=== PATIENT | male | born 1970 | race Caucasian/White ===

== ENCOUNTER 2020-10-29 13:48 | Outpatient (REF) | payer OTHER, SELFPAY ==
[2020-10-30 14:05] LABS: H Pylori Breath Test DETECTED (NOT DETECTED)
== END 2020-10-29 13:49 | disposition home or self-care (01) ==
LOC: HO.LNP 13:48
PROVIDERS: PCP Internal Medicine; Visit Provider Nurse Practitioner Family
DX: K21.9 Gastro-esophageal reflux disease without esophagitis (principal)
CPT/HCPCS: 83013

== ENCOUNTER → 2020-12-10 13:16 | Outpatient (BNVA) | payer OTHER, SELFPAY | PROVIDERS: PCP Internal Medicine; Referring Provider Internal Medicine; Visit Provider Nurse Practitioner Family ==

== ENCOUNTER → 2021-01-25 12:49 | Outpatient (BNVA) | payer OTHER, SELFPAY | PROVIDERS: PCP Internal Medicine; Referring Provider Internal Medicine; Visit Provider Internal Medicine | DX: Z01.810 Encounter for preprocedural cardiovascular examination (principal); R07.2 Precordial pain; E11.8 Type 2 diabetes mellitus with unspecified complications; E78.5 Hyperlipidemia, unspecified | CPT/HCPCS: 93005 ==

== ENCOUNTER 2021-02-23 09:15 | Day surgery (SDC) | payer OTHER, SELFPAY ==
[2021-01-20 13:32] VITALS: BMI 28.8
--- NOTE | 2021-02-22 10:53 | P.CONAN_ITS ---
Documented by User: Ingrid Hi NP 02/22/21 10:54 HPI - Anesthesia Eval Consult details Narrative: 50yo M for Upper Endoscopy and Colonoscopy Cardiac cleared at low risk [facility] Active Problems Active Problems: All Active Problems (Updated 01/25/21 @ 13:31 by Abraham Henao MD) Other and unspecified hyperlipidemia (Acute) Type 2 diabetes mellitus with unspecified complications (Acute) Precordial chest pain (Acute) Preoperative cardiovascular examination (Acute) Past Medical History Medical History (Updated 01/25/21 @ 13:31 by Abraham Henao MD) Diabetes Elevated cholesterol GERD (gastroesophageal reflux disease) Family History Family History (Updated 01/25/21 @ 13:13 by CAMMY Jimenez) Father No problems noted. Mother No problems noted. Surgical History Surgical History (Updated 02/23/21 @ 09:28 by Hayley Anna RN) Hx of oral surgery No pertinent past surgical history Social History Social History (Updated 01/25/21 @ 13:13 by CAMMY Jimenez) Patient Tobacco Use Status: Never used Tobacco Advance Directives Information Provided: No Advance Directives on File: No Meds Allergies Allergy/AdvReac Type Severity Reaction Status Date / Time No Known Allergies Allergy Verified 02/23/21 09:28 Home Medications Medication Instructions Recorded Confirmed Last Taken Type alcohol swabs (Alcohol Prep Pads) pad TOPICAL DAILY 10/29/20 Unknown History atorvastatin 20 mg tablet 20 mg PO DAILY 10/29/20 01/20/21 Unknown History blood sugar diagnostic (FreeStyle #10 ea 10/29/20 Unknown History Lite Strips) blood-glucose meter (FreeStyle #1 ea 10/29/20 Unknown History [place] Lite) lancets 33 gauge (TRUEplus Lancets) #100 ea 10/29/20 Unknown History metformin 500 mg tablet 500 mg PO BID 10/29/20 01/20/21 Unknown History Exam Exam Date and Time: February 22, 2021 1053 Height,Weight and Vital Signs: Height 5 ft 3 in Weight 73.936 kg Narrative Narrative: EKG 01/2020 sinus rhythm at 83/Min; no significant ST-T changes and otherwise unremarkable.? Normal WA/QTc Assessment and Plan Assessment Anesthesia Assessment: Chart Reviewed Documented by User: Colette Potter MD 02/23/21 09:51 [facility] Past Medical History Medical History (Updated 01/25/21 @ 13:31 by Abraham Henao MD) Diabetes Elevated cholesterol GERD (gastroesophageal reflux disease) Family History Family History (Updated 01/25/21 @ 13:13 by CAMMY Jimenez) Father No problems noted. Mother No problems noted. Family history of problems with anesthesia: No Surgical History Surgical History (Updated 02/23/21 @ 09:28 by Hayley Anna RN) Hx of oral surgery No pertinent past surgical history History of Problems with Anesthesia: No Social History Social History (Updated 01/25/21 @ 13:13 by CAMMY Jimenez) Patient Tobacco Use Status: Never used Tobacco Advance Directives Information Provided: No Advance Directives on File: No Meds Allergies Allergy/AdvReac Type Severity Reaction Status Date / Time No Known Allergies Allergy Verified 02/23/21 09:28 Home Medications Medication Instructions Recorded Confirmed Last Taken Type alcohol swabs (Alcohol Prep Pads) pad TOPICAL DAILY 10/29/20 Unknown History atorvastatin 20 mg tablet 20 mg PO DAILY 10/29/20 01/20/21 Unknown History blood sugar diagnostic (FreeStyle #10 ea 10/29/20 Unknown History Lite Strips) blood-glucose meter (FreeStyle #1 ea 10/29/20 Unknown History [place] Lite) lancets 33 gauge (TRUEplus Lancets) #100 ea 10/29/20 Unknown History metformin 500 mg tablet 500 mg PO BID 10/29/20 01/20/21 Unknown History Exam Airway Mallampati Class: II (Permenant upper) TM Dist: >3cm Neck ROM: Full Heart: rrr Lungs: cta Assessment and Plan Assessment Anesthesia Assessment: Anesthesia Plan Discussed and Chart Reviewed Final Anesthetic Review Family History of Problems with Anesthesia: No History of Problems with Anesthesia: No NPO: Yes ASA Class: III Final Preanesthetic Review: No Changes in Pt Med Stat, Meds/Allgs Chart Reviewed and Consent Obtained/Reviewed Patient Risk: Intermediate Procedure Risk: Intermediate Anesthetic Plan Anesthetic Plan: MAC: Disposition: Standard PACU
[2021-02-23 09:34] VITALS: BP 127/71; PULSE 72; RESP 16; TEMP 36.4; O2SAT 99
[2021-02-23] MEDS: Lactated Ringers 1,000 ML 100 ML IVCONT (09:50)
--- NOTE | 2021-02-23 09:55 | P.HPSUR_ITS ---
Pre-Procedural Eval Section A Date of Service: 02/23/21 Section B Chief Complaint: Screening, Reflux Relevant Family History (Specify if Yes): No Relevant Social History: None Present Medications: see Short Stay Collaborative assessment Medical History: Significant History (Diabetes Elevated cholesterol GERD (gastroesophageal reflux disease)) History of Previous Operations: Relevant previous surgery/procedure and date(s) (oral surgery) Allergies: Allergies Allergy/AdvReac Type Severity Reaction Status Date / Time No Known Allergies Allergy Verified 02/23/21 09:28 Review of Systems Sugical H&P ROS: Negative: Constitution, Cardiovascular, Respiratory, Ne urological, Psychiatric, Hem-Onc, Allergic/Immunologic, Gastrointestinal, Genitourinary, Musculoskeletal, Integumentary, Endocrine and Eyes/Ears/Nose/Throat Exam Surgical H&P Exam: Normal: HEENT, Normal: Heart, Normal: Lungs, Normal: Extremities, Normal: Abdomen, Normal: Skin and Normal: Neurological Plan Diagnosis/Plan: Unchanged I have reviewed the history and physical and performed a pertinent physical examination on my patient. No changes have occurred unless specified.
[2021-02-23 09:58] LABS: Glucose, Whole Blood 104 mg/dL (60-115)
--- NOTE | 2021-02-23 10:18 | P.BOP_ITS ---
Brief Operative Note Date of Service: 02/23/21 Pre-op diagnosis: GERd, hx of h pylori, colon screening Post-op diagnosis: same Procedure: see op note Surgeon: Hunter Villalobos MD Anesthesia: MAC Was an Objective C Developer used for this Procedure?: No Estimated blood loss (mL): 0 Condition: stable Disposition: PACU
--- NOTE | 2021-02-23 10:18 | W.PM.OPN ---
Operative Note Operative Note Date of Service: 02/23/21 Narrative: Operative Information Procedure Description: EGD, Colonoscopy FLEXIBLE TRANSORAL UPPER GASTROINTESTINAL ENDOSCOPY AND COLONOSCOPY PROCEDURE NOTE UPPER ENDOSCOPY Consent: Indications for the procedure and potential complications of bleeding, perforation, reaction to medications and missed diagnosis were discussed with the patient and informed consent was obtained. Instrument: Olympus GIF H 190 J mid size upper endoscope Monitoring: Vital signs and clinical assessment, continuous EKG monitoring, Pulse oximetry, Carbon Dioxide monitoring and blood pressure monitoring were done throughout the procedure. Procedure: The patient was placed in the left lateral decubitis position and pre-procedure medications were administered and a bite block was placed. The endoscope was inserted into the mouth and advanced under direct vision to the third part of duodenum. A careful inspection was made as the upper endoscope was withdrawn including a retroflexed examination of the proximal stomach; Findings and interventions are described below. Findings: Larynx:normal Esophagus: GE junction at 40 cm, diaphragm hiatus at 40 cm, tongue of salmon pink mucosa suspicious for barretts esophagus, bx taken. small esophageal inlet patch noted proximal esophagus Stomach: patchy erythematous mucosa. Biopsies were obtained. Grade 2 flap valve on retroflexed examination of the cardia. Duodenum: Normal bulb and descending duodenum, bx taken Intervention: Biopsies as noted above COLONOSCOPY Instrument: Olympus variable stiffness pediatric scope 190L Colonoscopy Monitoring: Vital signs and clinical assessment, continuous EKG monitoring, Pulse oximetry, Carbon Dioxide monitoring and blood pressure monitoring were done throughout the procedure. Colon withdrawal time was 8 minutes. Procedure: The patient was placed in the left lateral decubitis position and pre-procedure medications were administered. After a digital rectal examination of the ano-rectum, the video colonoscope was inserted into the rectum and advanced through the colon to the cecum/TI. The colonoscope was slowly withdrawn in a retrograde panoramic fashion and the colon mucosa was carefully examined including a retroflexed view of the rectum. Findings and interventions are described below. Procedure Difficulty: hard due to looping, pressure applied Findings: Terminal Ileum-normal Cecum:normal Ascending Colon: diminutive polyp 2-3 mm removed with forceps Transverse Colon -normal Descending Colon:normal Sigmoid Colon: melanosis coli Rectum: Retroflexion with small internal hemorrhoids, grade I Anorectum - normal Colon preparation: [place] Bowel Preparation Scale Right colon; 2 Transverse colon: 2 Left colon; 2 (0 = Unprepared colon segment with mucosa not seen due to solid stool that cannot be cleared. 1 = Portion of mucosa of the colon segment seen, but other areas of the colon segment not well seen due to staining, residual stool and/or opaque liquid. 2 = Minor amount of residual staining, small fragments of stool and/or opaque liquid, but mucosa of colon segment seen well. 3 = Entire mucosa of colon segment seen well with no residual staining, small fragments of stool or opaque liquid) Impression and Post Procedure Diagnosis: Endoscopy Findings: gastritis possible barretts esophageal inlet patch Colonoscopy Findings: polyp internal hemorrhoids melanosis coli Plan: Await Pathology results Repeat Colonoscopy in 5-7 years if adenomatous polyp, otherwise 10 yrs or earlier if clinically indicated High fiber diet leaflet avoid straining at stool, epsom salts and sitz bath, anusol supps or cream if h pylori pos then treat Above findings were reviewed with the patient and relevant handouts were provided if indicated. n
[2021-02-23 10:47] VITALS: BP 95/59; PULSE 77; RESP 14; TEMP 36.3; O2SAT 97
[2021-02-23 11:02] VITALS: BP 111/73; PULSE 81; RESP 17; TEMP 36.3; O2SAT 98
== END 2021-02-23 11:39 | disposition home or self-care (01) ==
PROVIDERS: PCP Internal Medicine; Visit Provider Internal Medicine Gastroenterology
PROC: (CPT 45380; principal; 2021-02-23 13:40)
DX: Z12.11 Encounter for screening for malignant neoplasm of colon (principal); K63.5 Polyp of colon; K63.89 Other specified diseases of intestine; K64.0 First degree hemorrhoids; K21.9 Gastro-esophageal reflux disease without esophagitis; K29.50 Unspecified chronic gastritis without bleeding; Q39.8 Other congenital malformations of esophagus; K44.9 Diaphragmatic hernia without obstruction or gangrene; E78.5 Hyperlipidemia, unspecified; E11.8 Type 2 diabetes mellitus with unspecified complications; R07.2 Precordial pain; Z79.84 Long term (current) use of oral hypoglycemic drugs; Z79.899 Other long term (current) drug therapy
CPT/HCPCS: 45380; 43239; 82947; 88305; 88342

== ENCOUNTER → 2021-03-11 15:26 | Outpatient (BNVA) | payer OTHER, SELFPAY | PROVIDERS: Visit Provider Nurse Practitioner Family ==

== ENCOUNTER → 2021-06-10 12:56 | Outpatient (BNVA) | payer OTHER, SELFPAY | PROVIDERS: Visit Provider Nurse Practitioner Family | DX: Z13.89 Encounter for screening for other disorder (principal) ==

== ENCOUNTER 2021-08-01 15:21 | Emergency (ER) | payer OTHER, SELFPAY ==
[2021-08-01 16:09] VITALS: BP 124/84; PULSE 86; RESP 18; TEMP 36.2; O2SAT 100; BMI 24.3
[2021-08-01 21:32] VITALS: BP 121/81; PULSE 75; RESP 16; TEMP 37.1; O2SAT 99
--- NOTE | 2021-08-01 22:44 | ED.GENADULT ---
HPI - General Adult General Chief complaint: General Medical Stated complaint: Lump in groin area Time Seen by Provider: 08/01/21 22:44 Source: patient and archeologist classical Mode of arrival: ambulatory Limitations: language barrier History of Present Illness HPI narrative: Patient is a 51 year old male presenting to the emergency department today with right sided groin pain. Patient states that last Sunday, 3 days ago, he noticed he had some swelling on his right testicle. Patient denies any dizziness, lightheadedness, abdominal pain, nausea, vomiting, fever, chills, blurry vision, double vision, loss of vision, chest pain, difficulty breathing, shortness of breath, back pain, night sweats, pain with urination, increased urinary frequency, increased urinary urgency, blood in his urine or stool, syncope or a near syncopal episode, recent trauma or falls, bowel incontinence, bladder incontinence, bowel retention, bladder retention, or any other complaints at this time. Onset (ago): day(s) Location: genitals Radiation: non-radiation Severity: mild Severity scale (1-10): 3 Quality: dull Relieving factors: none Exacerbating factors: none Associated symptoms: denies other symptoms Treatments prior to arrival: none Related Data Home Medications Medication Instructions Recorded Confirmed alcohol swabs (Alcohol Prep Pads) pad TOPICAL DAILY 10/29/20 atorvastatin 20 mg tablet 20 mg PO DAILY 10/29/20 01/20/21 blood sugar diagnostic (FreeStyle #10 ea 10/29/20 Lite Strips) blood-glucose meter (FreeStyle #1 ea 10/29/20 [place] Lite) lancets 33 gauge (TRUEplus Lancets) #100 ea 10/29/20 metformin 500 mg tablet 500 mg PO BID 10/29/20 01/20/21 Previous Rx's Medication Instructions Recorded simethicone 180 mg capsule (Gas 180 mg PO BID PRN #60 cap 03/11/21 Relief (simethicone)) omeprazole 40 mg capsule,delayed 40 mg PO BID #180 cap 06/10/21 release cephalexin 500 mg capsule 500 mg PO Q6H 7 Days #28 cap 08/01/21 Allergies Allergy/AdvReac Type Severity Reaction Status Date / Time No Known Allergies Allergy Verified 06/10/21 13:09 Review of Systems Constitutional: Constitutional: Reports no additional constitutional complaints, Denies chills, Denies fever(s) and Denies night sweats Eyes: Eyes: Reports no additional eye complaints, Denies blurry vision, Denies change in vision, Denies diplopia, Denies eye discharge, Denies loss of vision and Denies eye pain ENT: Denies dizziness Cardiovascular: Cardiovascular: Reports no additional cardiovascular complaints, Denies chest pain, Denies lightheadedness, Denies Loss of Consciousness and Denies dyspnea Respiratory: Respiratory: Reports no additional respiratory complaints and Denies dyspnea Gastrointestinal: Gastrointestinal: Reports no additional gastrointestinal complaints, Denies abdominal pain, Denies melena, Denies hematochezia, Denies change in bowel habits and Denies change in stool character Genitourinary: Genitourinary: Reports no additional male genitourinary complaints, Denies hematuria, Denies oliguria, Denies difficulty urinating, Denies dysuria, Denies urinary frequency, Denies urinary hesitancy, Denies urinary incontinence and Denies urinary urgency Comments: right sided groin pain Musculoskeletal: Musculoskeletal: Reports no additional musculoskeletal complaints, Denies numbness and Denies tingling Neurologic: Denies dizziness, Denies loss of vision, Denies numbness and Denies tingling Psychiatric: Psychiatric: Reports no additional psychiatric complaints Endocrine: Endocrine: Reports no additional endocrine complaints Hematologic/Lymphatic: Hematologic/Lymphatic: Reports no additional hematologic/lymphatic complaints Allergic/Immunologic: Allergic/Immunologic: Reports no additional allergic/immunologic complaints [facility] Past Medical History Attestation statement: The following information was validated with the patient. Source: old records reviewed Medical History Diabetes Elevated cholesterol GERD (gastroesophageal reflux disease) Surgical History History of esophagogastroduodenoscopy (EGD) Hx of colonoscopy Hx of oral surgery No pertinent past surgical history Family History Family History Father No problems noted. Mother No problems noted. Social History Social History Patient Tobacco Use Status: Never used Tobacco Advance Directives: No Physical Exam ED Vital Signs: Vital Signs - 24 hr 08/01/21 16:09 08/01/21 21:32 08/01/21 22:54 Temperature 97.2 F 98.8 F 98.5 F Pulse Rate 86 75 85 Respiratory Rate 18 16 18 Blood Pressure 124/84 121/81 126/74 Pulse Oximetry 100 99 98 BMI result Body Mass Index 24.3 Const General: cooperative, no acute distress, alert and awake Nutritional Appearance: well nourished Orientation/consciousness: patient oriented x3 Limitations: no limitations HENMT Head: Yes normal to inspection and Yes atraumatic Ears: hearing grossly normal bilaterally and external ears normal General nose exam: Normal external nose present, no nasal discharge noted and no epistaxis Face and sinus: Yes normal facial exam, No abrasion and No laceration Mouth: Normal oral and palatal mucosa present, no drooling and no muffled voice Eyes General: appearance normal, both eyes and all related structures Periorbital: periorbital findings normal Eyelids: Yes eyelids normal Conjunctivae: conjunctivae normal Pupils: Equal, round and reactive pupils present EOM: EOMs intact bilaterally Neck Neck: Yes normal visual inspection, Yes full ROM and Yes no lymphadenopathy Chest Chest palpation & inspection: normal inspection of the chest Resp Effort & Inspection: normal respiratory effort and able to speak in complete sentences Auscultation: clear to auscultation bilaterally GI Inspection: Yes normal to inspection Other: foliculitis present to the right testicle Neuro General: patient oriented x3 and moves all extremities Cranial nerves: Yes Equal, round and reactive pupils present Cognition (Neuro): normal cognition Motor exam (neuro): 5/5 motor strength present throughout Sensory Exam: Normal double simultaneous stimulation for sensation Coordination: [id number] test normal Extrem General: Yes normal to inspection, Yes full ROM and Yes capillary refill normal Psych Appearance: grossly normal Mental Status: mental status grossly normal Affect: normal affect Attitude: cooperative Thought process: Normal thought process present Thought content: Normal thought content present Insight: Good insight present (Psych) Medical Decision Making MDM Narrative Medical decision making narrative: Patient is a 51 year old male presenting to the emergency department today with right sided groin pain. Patient's physical exam showed obvious foliculitis to the right testicle. I explained my physical exam findings to the patient. I answered all questions asked by the patient. I stressed the importance of the patient taking his medication as prescribed. I stressed the importance of the patient following up with his primary care provider and a urologist if necessary. I stressed the importance of the patient returning to the emergency department immediately if his symptoms were to worsen or if he were to develop any dizziness, shortness of breath, difficulty breathing, chest pain, blurry vision, loss of vision, nausea, vomiting, abdominal pain, fever, chills, back pain, or any other complaints. Patient verbalized agreement and understanding with this treatment plan and discharge. Differential Diagnosis Differential Diagnosis: foliculitis Medical Records Medical records reviewed: Yes I reviewed the patient's medical records. Discharge Plan Discharge Clinical Impression: Folliculitis Patient Disposition: Home, Self-Care Instructions: Folliculitis (ED) Additional Instructions: Follow up with your primary care provider. Return to the emergency department immediately if your symptoms worsen or if you develop any dizziness, shortness of breath, difficulty breathing, chest pain, blurry vision, loss of vision, nausea, vomiting, abdominal pain, fever, chills, back pain, or any other complaints. Prescriptions: New cephalexin 500 mg capsule 500 mg PO Q6H 7 Days Qty: 28 0RF No Action (DME) lancets [TRUEplus Lancets] 33 gauge misc See Rx Instructions ea topical .MEDSUPPLY Qty: 100 0RF Rx Instructions: As directed alcohol swabs [Alcohol Prep Pads] Pads, Medicated topical DAILY 0RF (DME) FreeStyle Lite Strips Strip See Rx Instructions strip .ROUTE .MEDSUPPLY Qty: 10 0RF Rx Instructions: As directed atorvastatin 20 mg tablet 20 mg PO DAILY 0RF metformin 500 mg tablet 500 mg PO BID 0RF (DME) blood-glucose meter [FreeStyle [place] Lite] Kit See Rx Instructions kit .ROUTE .MEDSUPPLY Qty: 1 0RF Rx Instructions: As directed simethicone [Gas Relief (simethicone)] 180 mg capsule 180 mg PO BID PRN (Reason: abdominal distention) Qty: 60 1RF omeprazole 40 mg capsule,delayed release(DR/EC) 40 mg PO BID Qty: 180 3RF Rx Instructions: fiona reginaldo cpsula antes del desayuno y otra antes de la director external communications Referrals: Anthony Alas MD [Physician] - (Follow up with a urologist. ) Demetrius Medina MD [Primary Care Provider] - (Follow up with your PCP. ) Interventions: LWBS Worksheet Last Done: 08/01/21 19:39 ED Discharge Assessment Last Done: 08/01/21 22:57 Discharge Date/Time: 08/01/21 22:58 Print Language: Georgian
[2021-08-01 22:54] VITALS: BP 126/74; PULSE 85; RESP 18; TEMP 36.9; O2SAT 98
== END 2021-08-01 22:58 | disposition home or self-care (01) ==
PROVIDERS: Emergency Provider Physician Assistant Medical; PCP Internal Medicine
DX: L73.9 Follicular disorder, unspecified (principal); E11.9 Type 2 diabetes mellitus without complications
CPT/HCPCS: 99283; 99284

== ENCOUNTER → 2022-06-15 14:36 | Outpatient (BNVA) | payer OTHER, SELFPAY | PROVIDERS: PCP Internal Medicine; Visit Provider Nurse Practitioner Family | DX: Z13.89 Encounter for screening for other disorder (principal) ==

== ENCOUNTER 2023-06-15 12:31 | Outpatient (AMB) | payer OTHER, SELFPAY ==
--- NOTE | 2023-06-15 12:42 | A.OFFVIS_ITS ---
Intake Vital Signs 06/15/23 13:05 Height 5 ft 6 in Weight 163 lb 2.273 oz BMI 26.3 BP 127/78 Blood Pressure Location Lt brachial Position Sitting Pulse 73 Intake Visit Reasons: 1 yr follow up Intake Note: Hang presents in the office as a 1 year follow up. CC: He states that he Correctional Officer Captain Required: Yes Correctional Officer Captain Name: [email or web address] [id number] Allergies No Known Allergies Allergy (Verified 06/15/23 13:08) HPI 1 yr follow up HPI Details LAST VISIT GERD (gastroesophageal reflux disease) Discussed patient avoiding dietary triggers in late night snacking. Staying upright for minimum 3 hours after meals discussed with patient. Patient has been doing well. Will decrease omeprazole to once a day half an hour before breakfast. Patient will call us if he will have increase in symptoms in the evening after stopping the evening dose. Abdominal bloating Continue low FODMAP diet. Patient moves his bowels well. I will see him in 1 year, sooner on as needed basis. Patient is agreeable to this plan and verbalizes understanding of instructions. He was given the opportunity to ask questions and all questions answered. ? Thank you for allowing to participate in his care Plan Medications Changed From omeprazole fiona reginaldo cpsula antes del desayuno y otra antes de la dental appliance repairer 40 mg PO BID 180 caps 3RF K21.9 - Gastro-esophageal reflux disease without esophagitis To omeprazole fiona reginaldo cpsula antes del desayuno 40 mg PO DAILY 90 caps 3RF K21.9 - Gastro- esophageal reflux disease without esophagitis TODAY'S VISIT: Patient reports that he has been feeling well. Takes omeprazole only on as needed basis. Has not taking it for quite some time. Patient reports that his symptoms of acid reflux are infrequent. Only when he eats something that triggers his symptoms. Patient is trying to avoid dietary triggers. Denies any postprandial abdominal bloating or any pain. Reports that he is moving his bowels without any issues. Patient denies dyspepsia, dysphagia or odynophagia. Patient denies melena, hematochezia, unintentional weight loss or ribbon like stools. Colonoscopy done in 2020 recommendation for 10 years asymptomatic screening, sooner if clinically necessary. [facility] Medical History Elevated cholesterol GERD (gastroesophageal reflux disease) Diabetes Surgical History History of esophagogastroduodenoscopy (EGD) Hx of colonoscopy Hx of oral surgery No pertinent past surgical history Family History Father No problems noted. Mother No problems noted. Social History Patient Tobacco Use Status: Never used Tobacco Review of Systems Const Denies weight gain and Denies weight loss ENT Reports no additional complaints, Denies dysphagia and Denies odynophagia Card Reports no additional complaints Resp Reports no additional complaints GI Denies abdominal pain, Denies belching, Denies melena, Denies bloating, Denies change in bowel habits, Denies dysphagia, Denies excessive flatus, Denies dyspepsia, Denies heartburn, Denies diarrhea, Denies loose stools, Denies nausea, Denies odynophagia and Denies vomiting Reports no additional complaints Musc Reports no additional complaints Neuro Reports no additional complaints Psych Reports no additional complaints Endo Reports no additional complaints Physical Exam Vital Signs: Last Vital Signs Pulse 73 06/15/23 13:05 BP 127/78 06/15/23 13:05 BMI result Body Mass Index 26.3 Const General: healthy appearing, no acute distress and well developed Nutritional Appearance: well nourished Orientation/consciousness: patient oriented x3 Resp Effort & Inspection: normal respiratory effort, able to speak in complete sentences, no tracheal deviation and symmetric chest movement Auscultation: clear to auscultation bilaterally Cardio Rate: regular rate GI Inspection: Yes normal to inspection and No distended Palpation (GI): Soft to palpation, not firm, nontender and No hepatosplenomegaly present Auscultation: normal bowel sounds General: Yes no CVA tenderness Back/Spine/Pelvis Back: no CVA tenderness Skin General skin exam: elasticity normal, turgor normal and dry skin Neuro General: patient oriented x3 Psych Appearance: grossly normal Mental Status: mental status grossly normal Assessment & Plan Assessment & Plan (1) GERD (gastroesophageal reflux disease): Code(s): K21.9 - Gastro-esophageal reflux disease without esophagitis Qualifiers: Esophagitis presence: esophagitis presence not specified Qualified Code(s): K21.9 - Gastro-esophageal reflux disease without esophagitis (2) Abdominal bloating: Code(s): R14.0 - Abdominal distension (gaseous) Plan Continue avoiding dietary triggers and late night snacking. Staying upright for minimal 3 hours after meals discussed with patient. Patient will follow-up on as needed basis. He will call the office if he will develop any GI concerning symptoms. Thank you for allowing me to participate in his care Coding Level of Care Code Est Pt Level 3 (77559) Diagnoses Gastroesophageal reflux disease, unspecified whether esophagitis present K21.9 Esophagitis presence: esophagitis presence not specified Abdominal bloating R14.0 Time Spent (min) 25 Comment 15 minutes spent with patient and additional 10 minutes spent reviewing his records
[2023-06-15 13:05] VITALS: BP 127/78; PULSE 73; BMI 26.3
== END 2023-06-15 13:54 | disposition home or self-care (01) ==
PROVIDERS: PCP Internal Medicine; Visit Provider Nurse Practitioner Family
DX: K21.9 Gastro-esophageal reflux disease without esophagitis (principal); R14.0 Abdominal distension (gaseous)
CPT/HCPCS: 99213

== ENCOUNTER → 2023-06-15 12:31 | Outpatient (BNVA) | payer OTHER, SELFPAY | PROVIDERS: PCP Internal Medicine; Visit Provider Nurse Practitioner Family ==

== ENCOUNTER 2023-07-20 09:39 | Outpatient (REF) | payer MEDICAID, SELFPAY ==
[2023-07-20 15:00] LABS: Estimated Average Glucose 140 mg/dL; Hemoglobin A1c % 6.5 % (<6.0)
[2023-07-20 15:07] LABS: Alanine Aminotransferase 22 U/L (0-40); Albumin Level 4.2 g/dL (3.5-5.0); Alkaline Phosphatase 55 U/L (39-117); Anion Gap 13 (12-20); Aspartate Amino Transferase 23 U/L (5-37); Bilirubin Total 0.8 mg/dL (0.0-1.0); Blood Urea Nitrogen 14 mg/dL (9-16); Calcium 9.5 mg/dL (8.4-10.2); Carbon Dioxide 27 mmol/L (22-29); Chloride 106 mmol/L (96-108); Cholesterol 147 mg/dL (<200); Estimated Glomerular Filt Rate > 60; Glucose Random 120 mg/dL (60-115); HDL Cholesterol 51 mg/dL (>40); LDL Cholesterol Calculated 82 mg/dL (<100); Potassium 3.9 mmol/L (3.3-5.1); Sodium 142 mmol/L (135-145); Total Protein 7.5 g/dL (6.5-8.0); Triglycerides 71 mg/dL (<150)
[2023-07-20 15:54] LABS: Creatinine Urine 257.76 mg/dL; Microalbum/Creatinine Ratio Ur 3.4 ug/mg cr (<30)
== END 2023-07-20 09:40 | disposition home or self-care (01) ==
LOC: HO.CHCLDS 09:39
PROVIDERS: Visit Provider Internal Medicine
DX: E11.9 Type 2 diabetes mellitus without complications (principal)
CPT/HCPCS: 36415; 80053; 80061; 82043; 82570; 83036

== ENCOUNTER → 2023-09-25 09:42 | Outpatient (REF) | payer MEDICAID, SELFPAY ==
--- NOTE | 2023-09-25 09:46 | CA_ITS ---
Acquisition Time: 2023-09-25 10:04:59 Total Exercise Time: 00:09:34 Test Indications: CP Medications: SEE H Protocol: SARAY Max HR: 157 BPM 93% of Pred: 168 BPM Max BP: 168/094 mmHG Max Work Load: 11.0 METS Exercise stress test exercise 9 min 34 sec of Saray protocol achieving 86% MPHR, with 7/10 chest stabbing at peak, with mild SOB, with normotensive response to exercise, without EKG changes. Chest pain resolved with rest by 2 mins. Test reviewed with Dr. Henao. Recomend stress echcoardiogram and echocardiogram. Referred By: Demetrius Puente Torr Overread By: Chantell Mott
== END ==
LOC: HO.CARD 09:42
PROVIDERS: PCP Internal Medicine; Visit Provider Internal Medicine
DX: R07.89 Other chest pain (principal)
CPT/HCPCS: 93017

== ENCOUNTER → 2023-09-25 09:46 | Outpatient (BNV) | payer MEDICAID, SELFPAY | PROVIDERS: PCP Internal Medicine; Visit Provider Nurse Practitioner | DX: R07.9 Chest pain, unspecified (principal) | CPT/HCPCS: 93016; 93018 ==

== ENCOUNTER → 2024-01-11 10:58 | Outpatient (REF) | payer MEDICAID, SELFPAY ==
--- NOTE | 2024-01-11 11:02 | CA_ITS ---
Transthoracic Echocardiogram Patient (Last, First, Middle): Hang Navarro, Gender: Male Date of : 1970 Age: 53 Procedure Date: 01/11/2024 Procedure Type: Transthoracic Echocardiogram Location: OP Height: 167. cm Weight: 70.76 kg BSA: 1.79 m2 Heart Rate: 75 bpm BP: 115 / 75 mmHg Utilization Specialist: GENO Referring MD: Demetrius Magñaa MD Symptoms: CHEST PAIN. R07.89 Study Quality: Adequate ECG Rhythm: Sinus Conclusions: - The left ventricular systolic function is normal. The calculated ejection fraction is 56% by biplane method. - No obvious valvular pathology seen on this study. Findings Left Ventricle Normal left ventricular cavity size. The left ventricular systolic function is normal. The calculated ejection fraction is 56% by biplane method. There is no evidence of regional wall motion abnormalities. Diastolic function is normal for age. There is mild septal and mild basal asymmetric hypertrophy. Right Ventricle Normal right ventricular cavity size. There is low normal right ventricular systolic function. Atria Both atria are normal in size. Aortic Valve There is a normal trileaflet aortic valve. There is no aortic valve stenosis. There is no aortic valve regurgitation. Mitral Valve The mitral valve appears normal. There is no mitral valve regurgitation. There is no mitral valve stenosis. Pulmonic Valve The pulmonic valve is likely normal. Tricuspid Valve There is trace tricuspid valve regurgitation. There is no evidence of pulmonary hypertension. Great Vessels The asc aorta is normal in size. Venous The inferior vena cava is normal in size and collapses greater than 50% with inspiration. Pericardium/Pleural There is no evidence of pericardial effusion. Prior Study Comparison No prior study available for comparison. Recommendations, Care & Conclusions No obvious valvular pathology seen on this study. Measurements 2D Linear Measurements IVSd: 1.03 0.6-0.9/0.6-1.0 cm LVIDd: 4.16 3.9-5.3/4.2-5.9 cm LVIDd Index: 2.32 2.4-3.2/2.2-3.1 cm/m2 LVIDs: 2.00 2.0-3.6 cm LVPWd: 0.87 0.7-1.1 cm LA Diam: 2.70 2.7-3.8/3.0-4.0 cm LAIDs Index: 1.51 1.5-2.3 cm/m2 LV Mass: 156.58 67-162/88-224 g LV Mass Index: 87.47 43-95/49-115 g/m2 LVOT Diam: 2.00 3.0+(-)1.3 cm 2D Systolic Function EF 4C: 57.70 >55% EF 2C: 56.80 >55% EF BiP: 56.30 >55% Mitral Valve MV Pk E: 0.60 MV PK A: 0.71 MV Decel Time: 236.00 E/A: 0.80 E'Lateral: 12.50 E'Medial: 8.16 E/E' Med: 7.30 E/E' Lat: 4.80 PHT: 69.00 MVA PHT: 3.19 Decel [place]: 2.52 Aortic Valve AoV Pk Kishore: 0.96 AoV Mn Kishore: 0.70 AoV VTI: 0.19 AoV Pk Grad: 4.00 Aov Mn Grad: 2.00 KELSEA Cont.VTI: 2.39 LVOT LVOT Pk Kishore: 0.78 LVOT Mn Kishore: 0.52 LVOT VTI: 0.14 LVOT Pk Grad: 2.00 LVOT Mn Grad: 1.00 LVOT Diam: 2.00 LVOT Area: 3.14 Diastolic Function MV Pk E: 0.60 MV Pk A: 0.71 E/A: 0.80 E'Medial: 8.16 E/E' Med: 7.30 E' Laterial: 12.50 E/E' Lat: 4.80 Right Ventricle TAPSE (mm): 17.10 TVS' Kishore: 10.10 Tricuspid Valve TR Pk Kishore: 1.49 TR Pk Grad: 9.00 RA Press: 3.00 RVSP: 12.00 Great Vessels Aorta Sinus of Valsalva: 3.50 2.0-3.5 cm Ao Asc: 3.10 2.1-3.4 cm Pulmonary Valve PV Pk Kishore: 0.99 Peak PV Grad: 4.00 Updated in Other Vendor System with Status of Final Abraham Henao MD electronically signed on 01/12/2024 11:42:46 AM with status of Final
== END ==
LOC: HO.CARD 10:58
PROVIDERS: PCP Internal Medicine; Visit Provider Internal Medicine
DX: R07.89 Other chest pain (principal)
CPT/HCPCS: 93306

== ENCOUNTER → 2024-01-11 11:02 | Outpatient (BNV) | payer MEDICAID, SELFPAY | PROVIDERS: PCP Internal Medicine; Visit Provider Internal Medicine | DX: I42.2 Other hypertrophic cardiomyopathy (principal) | CPT/HCPCS: 93306 ==

== ENCOUNTER → 2024-01-29 10:56 | Outpatient (REF) | payer MEDICAID, SELFPAY ==
--- NOTE | 2024-01-29 11:12 | CA_ITS ---
Acquisition Time: 2024-01-29 11:23:47 Total Exercise Time: 00:10:45 Test Indications: Chest Pain Medications: ATORVASTATIN METFORMIN Protocol: SARAY Max HR: 176 BPM 104% of Pred: 168 BPM Max BP: 158/084 mmHG Max Work Load: 12.9 METS Exercise stress test with exercise 10 mins 45 secs of Saray Protocol, achieving 96% MPHR, without any anginal symptoms, without any arrythmia, with normotensive response to exercise. Without EKG changes meeting criteria for ischemia. Echo images obtained by tech at rest and after peak exercise. Definity used. Test reviewed with Dr. Arana. Referred By: Demetrius Martin Overread By: JOSE LUIS HARVEY
== END ==
LOC: HO.CARD 10:56
PROVIDERS: PCP Internal Medicine; Visit Provider Internal Medicine
DX: R07.89 Other chest pain (principal)
CPT/HCPCS: 93350; Q9957

== ENCOUNTER → 2024-01-29 11:12 | Outpatient (BNV) | payer MEDICAID, SELFPAY | PROVIDERS: PCP Internal Medicine; Visit Provider Nurse Practitioner Family | DX: R07.9 Chest pain, unspecified (principal); I51.89 Other ill-defined heart diseases | CPT/HCPCS: 93016; 93018; 93350; 93352 ==

== ENCOUNTER 2024-11-14 10:07 | Outpatient (REF) | payer MEDICAID, SELFPAY ==
--- OUTSIDE RECORDS SUMMARY | 2024-11-14 10:10 | XMS_ITS | Encounter Summary ---
Author Organization [employer] Address [address] [place] [address] [address] [place] [address] Care Team Providers Care Snuff Grinder And Screener Name Role Phone Demetrius Medina MD Primary Care Prov ider Encounter Details Date Type Department Care Team ([facility] st Contact Info) Description 07/27/2022 Orders Only [facility] [address] [place] [address] Tequila Abebe LPN Social History Tobacco Use Types Packs/Day Years Used Date Smoking Tobacco: Never Assessed Sex and Gender Information Value Date Recorded Sex Assigned at Male 01/23/2022 10:37 AM EDT Legal Sex Male 10:37 AM EDT Gender Identity Male 01/23/2022 10:37 AM EDT Sexual Orientation Don't know 01/23/2022 10 :37 AM EDT documented as of this encounter Plan of Treatment Not on file documented as of this encounter Visit Diagnoses Not on filedocumented in this encounter Care Teams Snuff Grinder And Screener Relationship Specialty Start Date End Date Demetrius Medina MD [address] [place] [address] PCP - General Internal Medicine 07/27/20 documented as of this encounter
[2024-11-14 15:49] LABS: MANUAL DIFF FLAG NO
[2024-11-14 16:16] LABS: Hematocrit 47.7 % (42.0-52.0); Hemoglobin 15.8 g/dl (14.0-18.0); Imm Gran Abs Auto 0.02 X10*3/uL (0.00-0.03); Imm Gran Pct Auto 0.3 % (0.0-0.4); Lymphocytes Absolute Auto 2.0 X10*3/uL (1.2-4.9); Mean Corpuscular HGB Conc 33.1 g/dl (31.0-36.0); Mean Corpuscular Hemoglobin 30.7 pg (27.0-33.0); Mean Corpuscular Volume 92.6 fL (80.0-98.0); NRBC Abs Auto 0.000 X10*3/uL (0.0-0.012); NRBC Pct Auto 0.0 /100WBC (0.0-0.2); Platelet Count 220 X10*3/uL (160-400); Red Blood Count 5.15 X10*6/uL (4.60-5.80); White Blood Count 6.6 X10*3/uL (4.8-10.8)
[2024-11-14 16:42] LABS: Hemoglobin A1C 184.6959 umol/L; Total Hemoglobin (HGBA1C) 4167.1933 umol/L
[2024-11-14 16:48] LABS: Alanine Aminotransferase 40 U/L (0-40); Albumin Level 4.7 g/dL (3.5-5.0); Alkaline Phosphatase 56 U/L (39-117); Anion Gap 14 (12-20); Aspartate Amino Transferase 40 U/L (5-37); Blood Urea Nitrogen 11 mg/dL (9-16); Calcium 9.6 mg/dL (8.4-10.2); Carbon Dioxide 25 mmol/L (22-29); Chloride 104 mmol/L (96-108); Cholesterol 179 mg/dL (<200); Estimated Glomerular Filt Rate > 60; HDL Cholesterol 58 mg/dL (>40); Potassium 4.4 mmol/L (3.3-5.1); Sodium 139 mmol/L (135-145); Total Protein 7.6 g/dL (6.5-8.0); Triglycerides 76 mg/dL (<150)
[2024-11-14 17:00] LABS: PSA,Total (Free>4and<10) 0.83 ng/mL (0.00-4.00)
== END 2024-11-14 10:08 | disposition home or self-care (01) ==
LOC: HO.CHCLDS 10:07
PROVIDERS: Visit Provider Internal Medicine
DX: Z12.5 Encounter for screening for malignant neoplasm of prostate (principal); E11.9 Type 2 diabetes mellitus without complications; E78.2 Mixed hyperlipidemia
CPT/HCPCS: 36415; 80053; 80061; 82570; 83036; 84153; 84443; 85025